=== PATIENT | female | born 1975 | race Caucasian/White ===

== ENCOUNTER → 2016-05-03 | Outpatient (CLI) | payer BC ==
[~2016-05-03] MED LIST: SUMA100T16 PO
[2016-05-03 17:46] LABS: BASO % 0.7 %; BASO ABS # 0.04 K/uL (0-0.2); COMPLETE YES; EOS % 3.1 %; HEMATOCRIT 37.1 % (37-47); IG% 0.3 %; LYMPH % 32.6 %; MEAN CELL VOLUME 83.9 fL (80-100); MEAN CORPUSCULAR HEMOGLOBIN 29.2 pg (25-34); MEAN CORPUSCULAR HGB CONC 34.8 g/dl (32-36); MEAN PLATELET VOLUME 9.6 fL (7.4-10.4); MONO % 8.5 %; NEUT % 54.8 %; PLATELET COUNT 278 K/uL (130-400); RED BLOOD COUNT 4.42 M/uL (4.2-5.4); WHITE BLOOD COUNT 6.14 K/uL (4.8-10.8)
[2016-05-03 18:12] LABS: ALT/SGPT 44 U/L (12-78); AST/SGOT 27 U/L (15-37); BLOOD UREA NITROGEN 8 mg/dl (7-18); BUN/CREATININE RATIO 9.4 (10-20); CALCIUM 9.1 mg/dl (8.5-10.1); CARBON DIOXIDE 27 mmol/L (21-32); CHLORIDE 105 mmol/L (98-107); CREATININE 0.83 mg/dl (0.60-1.20); GLUCOSE 89 mg/dl (70-99); POTASSIUM 3.5 mmol/L (3.5-5.1); SODIUM 142 mmol/L (136-145)
[2016-05-03 18:15] LABS: ALB/GLOB RATIO 1.1 (0.9-2); ALKALINE PHOSPHATASE 60 U/L (45-117)
--- NOTE | 2016-05-24 11:01 | CODING QUERY NO DIAGNOSIS ---
TREATMENT RENDERED WITHOUT A DIAGNOSIS To promote full compliance with coding requirements relating to patient care, physician participation is requested in all cases of cotton stripper uncertainty. Please assist us with providing a diagnosis/symptom for the test(s) below: A diagnosis/symptom was not documented on your Order. A valid diagnosis/symptom is required to bill all insurances. Please remember that we are unable to code a diagnosis of rule out, probable, possible, questionable, or suspected. Tests that require a diagnosis: * CBC W/ AUTO DIFF DIAGNOSIS: * CMP DIAGNOSIS: Provider Signature: Date: Thank you Mellissa Yañez [employer] Information Management Once completed, please kindly fax back to [phone] For questions please call [phone]
== END | disposition home or self-care (01) ==
LOC: C.LAB 16:57
PROVIDERS: ATTEND Internal Medicine Hematology & Oncology
DX: C50.911 Malignant neoplasm of unspecified site of right female breast (principal)

== ENCOUNTER → 2017-04-22 | Outpatient (CLI) | payer OTHER | END | disposition home or self-care (01) | LOC: C.MAMM 10:21 | PROVIDERS: ATTEND Internal Medicine Hematology & Oncology | DX: C50.919 Malignant neoplasm of unspecified site of unspecified female breast (principal) ==

== ENCOUNTER → 2017-05-05 | Outpatient (CLI) | payer OTHER ==
[2017-05-05 15:42] LABS: BASO % 0.7 %; BASO ABS # 0.04 K/uL (0-0.2); EOS % 2.8 %; EOS ABS # 0.16 K/uL (0-0.5); HEMATOCRIT 38.5 % (37-47); HEMOGLOBIN 13.5 g/dL (12.0-16.0); IG# 0.02 K/uL (0.00-0.02); LYMPH % 34.8 %; LYMPH ABS # 2.01 K/uL (1.2-3.4); MEAN CELL VOLUME 83.5 fL (80-100); MEAN CORPUSCULAR HEMOGLOBIN 29.3 pg (25-34); MEAN CORPUSCULAR HGB CONC 35.1 g/dl (32-36); MEAN PLATELET VOLUME 9.6 fL (7.4-10.4); MONO % 8.1 %; MONO ABS # 0.47 K/uL (0.11-0.59); NEUT % 53.3 %; NEUT ABS # 3.08 K/uL (1.4-6.5); PLATELET COUNT 267 K/uL (130-400); RED CELL DISTRIBUTION WIDTH CV 14.1 % (11.5-14.5); RED CELL DISTRIBUTION WIDTH SD 43.1 fL (36.4-46.3); WHITE BLOOD COUNT 5.78 K/uL (4.8-10.8)
[2017-05-05 16:26] LABS: ALBUMIN 4.1 gm/dl (3.4-5.0); ALT/SGPT 43 U/L (12-78); AST/SGOT 29 U/L (15-37); BLOOD UREA NITROGEN 7 mg/dl (7-18); CALCIUM 9.1 mg/dl (8.5-10.1); CARBON DIOXIDE 25 mmol/L (21-32); CREATININE 0.89 mg/dl (0.60-1.20); GLUCOSE 95 mg/dl (70-99); POTASSIUM 3.5 mmol/L (3.5-5.1); SODIUM 138 mmol/L (136-145)
[2017-05-05 16:29] LABS: ALKALINE PHOSPHATASE 62 U/L (45-117); TOTAL PROTEIN 8.2 gm/dl (6.4-8.2)
== END | disposition home or self-care (01) ==
LOC: C.LAB 14:56
PROVIDERS: ATTEND Internal Medicine Hematology & Oncology
DX: C50.911 Malignant neoplasm of unspecified site of right female breast (principal)

== ENCOUNTER 2017-05-17 19:01 | Emergency (ER) | payer OTHER ==
[~2017-05-17] VITALS: Ht 175.3 cm; Wt 93.9 kg
[2017-05-17 19:10] VITALS: TEMP 36.4; Ht 175.3 cm; Wt 93.9 kg
[2017-05-17] MEDS ORDERED: GI COCKTAIL PO STA (19:26)
[2017-05-17] MEDS ORDERED: ONDANSETRON INJ 2 MG/ML 2 ML VIAL IV STA ×2 (19:26→22:01)
[2017-05-17] MEDS ORDERED: FAMOTIDINE 20 MG TAB PO ONE (19:30)
--- NOTE | 2017-05-17 19:31 | EMERGENCY ROOM VISIT NOTE ---
History Report prepared by Quinn: Enrique May Under the Supervision of: Dr. Titus Orozco M.D. First contact with patient: 19:15 Chief Complaint: GI ASSESSMENT Stated Complaint: INTENSE PAIN AFTER EATING, LASTING SEVERAL HOURS Nursing Triage Summary: Pt states pain "around abdomen and it travels into my left shoulder. It started Thurs night. I had some nausea from the pain. I had just eaten and was in the shower and the pain last all night. I took a Gas-X and it helped a little. I ate some soup and saltines tonight and within an hour I got the pain again." History of Present Illness The patient is a 41 year old white female with a past medical history of migraines, hysterectomy, lymphedema, double mastectomy, and breast cancer who presents to the ED with a cc of intermittent lower abdominal pain beginning two days ago. She rates her discomfort as a 6/10 in severity. The patient states that the pain started after she ate dinner two days ago. She reports that the pain resolved the next day until she ate food later that evening. The patient states that at this time the pain was located more on the left side of her abdomen. The patient states that she took Gas-X and Pepto Bismol, which she reports mildly alleviated her pain. She reports that she induced vomiting, which also helped mildly alleviate symptoms. The patient states that she has not had a bowel movement for two days. Positive nausea, back pain, left shoulder pain. Negative fried food, citrus food, hematuria, urinary symptoms, passing gas, vaginal bleeding or discharge, leg swelling, chest pain, SOB, sick contact, recent long travel, and antibiotic use. Source of History: patient Onset: two days ago Position: abdomen Symptom Intensity: 6/10 Timing: intermittent Modifying Factors (Worsening): eating Modifying Factors (Relieving): other (Gas-x, Pepto Bismol, vomiting) Associated Symptoms: + nausea, + back pain, No chest pain, No SOB, No urinary symptoms Review of Systems See HPI for pertinent positives and negatives. A total of ten systems were reviewed and were otherwise negative. Past Medical & Surgical Medical Problems: (1) Breast cancer Surgical Problems: (1) H/O mastectomy (2) H/O: hysterectomy Family History Diabetes mellitus FHx: cancer FHx: heart disease Social History Smoking Status: Never Smoker Marital Status: single Housing Status: lives alone Occupation Status: employed Current/Historical Medications Scheduled Sumatriptan Succinate (Imitrex), 100 MG PO PRN Tamsulosin Hcl (Flomax), 0.4 MG PO DAILY Scheduled PRN Ondansetron Hcl (Zofran), 4 MG PO Q8H PRN for Nausea Oxycodone Immediate Rel Tab (Roxicodone Ir), 5 MG PO Q4H PRN for Severe Pain Allergies Coded Allergies: No Known Allergies (Verified , 05/17/17) Physical Exam Vital Signs Date Time Temp Pulse Resp B/P (MAP) Pulse Ox O2 Delivery O2 Flow Rate FiO2 05/17/17 22:39 106 18 143/92 97 05/17/17 20:57 101 18 152/93 99 Room Air 05/17/17 19:55 100 05/17/17 19:10 36.4 110 18 125/95 98 Room Air Physical Exam GENERAL: Awake, alert, well-appearing, NAD HENT: Normocephalic, atraumatic. EYES: Normal conjunctiva. Sclera non-icteric. NECK: Supple. No nuchal rigidity. FROM. RESPIRATORY: CTAB, no rhonchi, wheezing, crackles CARDIAC: RRR, no MRG ABDOMEN: Soft, mild LUQ TTP, ND, BS+ MSK: No chest wall TTP, no LE edema NEURO: GCS 15, CN 2-12 intact, moves all 4s on command SKIN: No rash or jaundice noted. Medical Decision & Procedures ER Provider Diagnostic Interpretation: Radiology results as stated below per my review and radiologist interpretation: ABDOMEN 2VIEW W/PA CHEST RTN CLINICAL HISTORY: 41 years-old Female presenting with ABDOMINAL PAIN/GI. TECHNIQUE: PA view of the chest and supine and upright views of the abdomen were obtained. COMPARISON: Chest x-ray from 03/14/2016. FINDINGS: Cardiomediastinal silhouette normal. Lungs and pleural spaces clear. Surgical clips in the left axilla. Nonobstructive bowel gas pattern. Moderate stool burden in the right colon. No gross pneumoperitoneum. Allowing for bowel gas and stool, no calcifications to suggest nephrolithiasis. Osseous structures normal. IMPRESSION: 1. No acute cardiopulmonary disease. 2. No radiographic evidence of acute intra-abdominal pathology. Electronically signed by: Bryson Urbina M.D. 05/17/2017 9:03 PM Dictated Date/Time: 05/17/2017 9:01 PM ABD/PELVIS IV CONTRAST ONLY CLINICAL HISTORY: 41 years-old Female presenting with LUQ pain, shoulder pain, prior h/o breast CA, lower abdominal pain. TECHNIQUE: Multidetector CT of the abdomen and pelvis was performed after the administration of intravenous contrast. IV contrast: 120 mL of Optiray 320. A dose lowering technique was used consistent with the principles of ALARA (as low as reasonably achievable). COMPARISON: 08/20/2010.. CT DOSE (mGy.cm): The estimated cumulative dose is 578.00 mGy.cm. 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 Lung bases: Lungs and pleural spaces clear. Normal heart size. No pericardial or pleural effusion. Liver: Normal morphology. No liver lesion. Patent hepatic vasculature. Biliary: No intrahepatic or extrahepatic biliary ductal dilatation. Normal gallbladder. Pancreas: Normal. Spleen: Normal. Adrenal glands: Normal. Kidneys and ureters: Obstructing 1 to 2 mm calculus at the left ureterovesical junction. Mild left pelvocaliectasis and mild distention of the left ureter. Hypoperfusion of the left kidney relative to the right. The left kidney is also swollen with mild perinephric fat stranding. No additional renal or ureteral calculus. Right kidney and ureter normal. Bladder: Normal. Pelvic organs: Uterus surgically absent. No adnexal masses. Bowel: Normal. No bowel obstruction. Peritoneal cavity: No free fluid or intraperitoneal gas. Lymph nodes: No enlarged lymph nodes in the abdomen or pelvis. Vasculature: Aorta and IVC patent and normal in caliber. Abdominal wall: Normal. Musculoskeletal: Normal. IMPRESSION: 1. Obstructing 1-2 mm calculus at the left ureterovesical junction with resultant mild left hydroureteronephrosis. No additional renal or ureteral calculus. Electronically signed by: Bryson Urbina M.D. 05/17/2017 9:23 PM Dictated Date/Time: 05/17/2017 9:19 PM Laboratory Results 05/17/17 19:55 Red Blood Count 4.56, Mean Corpuscular Volume 85.5, Mean Corpuscular Hemoglobin 29.4, Mean Corpuscular Hemoglobin Concent 34.4, Mean Platelet Volume 9.8, Neutrophils (%) (Auto) 79.8, Lymphocytes (%) (Auto) 9.5, Monocytes (%) (Auto) 9.8, Eosinophils (%) (Auto) 0.4, Basophils (%) (Auto) 0.2, Neutrophils # (Auto) 9.95, Lymphocytes # (Auto) 1.18, Monocytes # (Auto) 1.22, Eosinophils # (Auto) 0.05, Basophils # (Auto) 0.03 05/17/17 19:55 Test 05/17/17 19:43 05/17/17 19:55 Urine Color YELLOW Urine Appearance CLEAR (CLEAR) Urine pH 5.5 (4.5-7.5) Urine Specific [place] 1.015 (1.000-1.030) Urine Protein NEG (NEG) Urine Glucose (UA) NEG (NEG) Urine Ketones 1+ (NEG) Urine Occult Blood TRACE (NEG) Urine Nitrite NEG (NEG) Urine Bilirubin NEG (NEG) Urine Urobilinogen NEG (NEG) Urine Leukocyte Esterase SMALL (NEG) Urine WBC (Auto) 1-5 /hpf (0-5) Urine RBC (Auto) 0-4 /hpf (0-4) Urine Hyaline Casts (Auto) 1-5 /lpf (0-5) Urine Epithelial Cells (Auto) 20-30 /lpf (0-5) Urine Bacteria (Auto) NEG (NEG) Urine Test NEG (NEG) White Blood Count 12.47 K/uL (4.8-10.8) Red Blood Count 4.56 M/uL (4.2-5.4) Hemoglobin 13.4 g/dL (12.0-16.0) Hematocrit 39.0 % (37-47) Mean Corpuscular Volume 85.5 fL (80-100) Mean Corpuscular Hemoglobin 29.4 pg (25-34) Mean Corpuscular Hemoglobin Concent 34.4 g/dl (32-36) Platelet Count 247 K/uL (130-400) Mean Platelet Volume 9.8 fL (7.4-10.4) Neutrophils (%) (Auto) 79.8 % Lymphocytes (%) (Auto) 9.5 % Monocytes (%) (Auto) 9.8 % Eosinophils (%) (Auto) 0.4 % Basophils (%) (Auto) 0.2 % Neutrophils # (Auto) 9.95 K/uL (1.4-6.5) Lymphocytes # (Auto) 1.18 K/uL (1.2-3.4) Monocytes # (Auto) 1.22 K/uL (0.11-0.59) Eosinophils # (Auto) 0.05 K/uL (0-0.5) Basophils # (Auto) 0.03 K/uL (0-0.2) RDW Standard Deviation 43.5 fL (36.4-46.3) RDW Coefficient of Variation 14.2 % (11.5-14.5) Immature Granulocyte % (Auto) 0.3 % Immature Granulocyte # (Auto) 0.04 K/uL (0.00-0.02) Anion Gap 7.0 mmol/L (3-11) Est Creatinine Clear Calc Drug Dose 61.7 ml/min Estimated GFR () 50.8 Estimated GFR (Non- 43.8 BUN/Creatinine Ratio 9.3 (10-20) Calcium Level 9.3 mg/dl (8.5-10.1) Total Bilirubin 0.6 mg/dl (0.2-1) Direct Bilirubin mg/dl (0-0.2) Aspartate Amino Transf (AST/SGOT) 28 U/L (15-37) Alanine Aminotransferase (ALT/SGPT) 32 U/L (12-78) Alkaline Phosphatase 64 U/L (45-117) Total Protein 8.3 gm/dl (6.4-8.2) Albumin 4.0 gm/dl (3.4-5.0) Lipase 130 U/L (73-393) Chemistry Specimen Hemolysis Laboratory results reviewed by me Medications Administered Medications (Trade) Dose Ordered Sig/Mike Route Start Time Stop Time Status Last Admin Dose Admin Ondansetron HCl (Zofran Inj) 4 mg NOW STAT IV 05/17/17 19:26 05/17/17 19:27 DC 05/17/17 20:09 4 MG Famotidine (Pepcid Tab) 20 mg NOW ONCE PO 05/17/17 19:30 05/17/17 19:31 DC 05/17/17 20:11 20 MG Lidocaine HCl (Viscous Lidocaine 2% Soln) 20 ml STK-MED ONCE .ROUTE 05/17/17 20:04 05/17/17 20:05 DC 05/17/17 20:11 10 ML Al Hydroxide/Mg Hydroxide (Maalox Susp) 30 ml STK-MED ONCE .ROUTE 05/17/17 20:05 05/17/17 20:06 DC 05/17/17 20:12 30 ML Tamsulosin HCl (Flomax Cap) 0.4 mg NOW ONCE PO 05/17/17 21:45 05/17/17 21:46 DC 05/17/17 21:37 0.4 MG Acetaminophen/ Hydrocodone Bitart ([place] 5/325 Tab) 1 tab ONE STAT PO 05/17/17 21:32 05/17/17 21:33 DC 05/17/17 21:38 1 TAB Ketorolac Tromethamine (Toradol Inj) 30 mg NOW STAT IV 05/17/17 21:40 05/17/17 21:41 DC 05/17/17 22:05 30 MG Morphine Sulfate (MoRPHine SULFATE INJ) 4 mg NOW STAT IV 05/17/17 21:40 05/17/17 21:41 DC 05/17/17 22:07 4 MG Ondansetron HCl (Zofran Inj) 4 mg NOW STAT IV 05/17/17 22:01 05/17/17 22:02 DC 05/17/17 22:03 4 MG ECG Per My Interpretation Indication: abdominal pain Rate (beats per minute): 100 Rhythm: normal sinus Findings: T-wave inversion (Lead III), other (Normal axis, normal intervals, No other STS changes or TWI) ED Course 1918: The patient was evaluated in room C10. A complete history and physical exam was performed. 2135: I reevaluated the patient. Discussed results and discharge instructions: She verbalized understanding and agreement. The patient is ready for discharge. Medical Decision Triage Nursing notes reviewed. Prior records reviewed. The patient is a 41 year old white female with a past medical history of migraines, hysterectomy, lymphedema, double mastectomy, and breast cancer who presents to the ED with a cc of intermittent lower abdominal pain beginning two days ago. The patient's presentation and history were concerning for etiologies such as appendicitis, diverticulitis, PUD, biliary pathology, UTI, pancreatitis, obstruction, mesenteric ischemia, aortic pathology, infections, inflammatory bowel disease, renal colic, as well as others were entertained. Patient was seen and evaluated the bedside. Patient was complaining of some abdominal pain primarily after eating. Patient has had 2 or 3 separate bouts of this discomfort. Patient initially described this as diffuse however when asking for specific worsening location she does describe a left upper quadrant. She does complain of some mild pain in the shoulder. Patient did have blood work completed, EKG, troponin, plain films as well as CT of the abdomen and pelvis. Patient's blood work is fairly unremarkable. Urinalysis negative for infection. Patient urine test negative. Patient's plain films negative. Patient's EKG nonischemic with a negative troponin. Less likely atypical chest pains. CTV of the abdomen pelvis did show a 1-2 mm left obstructing stone. Patient's creatinine is 1.48. Patient is still making good urine. Given the size of the stone even though it is obstructing it is likely to pass, especially given that this is at the [facility]. Patient's pain is improved. Patient was informed of findings. I did state that the patient should return if she has any worsening symptoms and was given a referral to urology. Patient does not appear to be infected thus I do not believe that she needs to stay in the hospital at this time. Patient was able to tolerate p.o. without issue. Patient was deemed suitable for outpatient follow-up and discharge. Medication Reconcilliation Current Medication List: was personally reviewed by me Blood Pressure Screening Patient's blood pressure: Normal blood pressure Impression Primary Impression: Ureterolithiasis Additional Impressions: Abdominal pain Nausea Scribe Attestation The scribe's documentation has been prepared under my direction and personally reviewed by me in its entirety. I confirm that the note above accurately reflects all work, treatment, procedures, and medical decision making performed by me. Departure Information Dispostion Home / Self-Care Prescriptions Ondansetron Hcl (ZOFRAN) 4 Mg Tab 4 MG PO Q8H Y for Nausea, #12 TAB Prov: Titus Orozco M.D. 05/17/17 Oxycodone Immediate Rel Tab (ROXICODONE IR) 5 Mg Tab 5 MG PO Q4H Y for Severe Pain, #12 TAB Prov: Titus Orozco M.D. 05/17/17 Tamsulosin Hcl (FLOMAX) 0.4 Mg Cap 0.4 MG PO DAILY for 30 Days, #30 CAP Prov: Titus Orozco M.D. 05/17/17 Referrals No Doctor, Assigned (PCP) Bhupinder Sharma MD Patient Instructions Kidney Stones - [facility], Kidney Stones [facility], [facility] Additional Instructions Please return to the emergency department if you have worsening or recurrent symptoms not amenable to at-home treatment. Please call for a follow-up appointment with her primary care physician. Please take your medications as prescribed. If you have other concerns and/or complaints please feel free to also call your primary care physician's office or return the ED for further evaluation, management, and treatment. You received narcotic or benzodiazepene medication while in the emergency room today. This is an addictive medication that may cause drowziness as well as constipation. Do not drive, operate heavy machinery, or drink alcohol under the influence of this medication. You may take 600 mg Ibuprofen every 6 hours as needed for pain with food. You may take tylenol 1000 mg every 6 hours as needed for pain. You may take motrin and tylenol separately or at the same time. You may call the urologist as needed for a follow up appointment. Take your medications as prescribed. You have been examined and treated today on an emergency basis only. This is not a substitute for, or an effort to provide, complete comprehensive medical care. It is impossible to recognize and treat all injuries or illnesses in a single emergency department visit. It is therefore important that you follow up closely with [facility], your PCP, and/or your specialist(s). Call as soon as possible for an appointment. Thank you for your time and consideration. I look forward to speaking with you again soon. Please don't hesitate to call us if you have any questions. Problem Qualifiers Additional Impressions: Abdominal pain Abdominal location: generalized Qualified Codes: R10.84 - Generalized abdominal pain
[2017-05-17] MEDS ORDERED: OPTIRAY 320 IV PRN (20:00)
[2017-05-17] MEDS ORDERED: LIDOCAINE HCL 2% VISC SOLN 20 ML UDC ONE (20:04)
[2017-05-17] MEDS ORDERED: ALUMINUM/MAGNESIUM SUSP 30 ML UDC ONE (20:05)
[2017-05-17 20:09] LABS: BASO % 0.2 %; BASO ABS # 0.03 K/uL (0-0.2); EOS % 0.4 %; EOS ABS # 0.05 K/uL (0-0.5); HEMOGLOBIN 13.4 g/dL (12.0-16.0); IG# 0.04 K/uL (0.00-0.02); LYMPH % 9.5 %; LYMPH ABS # 1.18 K/uL (1.2-3.4); MEAN CELL VOLUME 85.5 fL (80-100); MEAN CORPUSCULAR HEMOGLOBIN 29.4 pg (25-34); MEAN CORPUSCULAR HGB CONC 34.4 g/dl (32-36); MEAN PLATELET VOLUME 9.8 fL (7.4-10.4); MONO % 9.8 %; MONO ABS # 1.22 K/uL (0.11-0.59); NEUT % 79.8 %; NEUT ABS # 9.95 K/uL (1.4-6.5); PLATELET COUNT 247 K/uL (130-400); RED CELL DISTRIBUTION WIDTH CV 14.2 % (11.5-14.5); RED CELL DISTRIBUTION WIDTH SD 43.5 fL (36.4-46.3); WHITE BLOOD COUNT 12.47 K/uL (4.8-10.8)
[2017-05-17 20:35] LABS: CALCIUM 9.3 mg/dl (8.5-10.1); CREATININE 1.48 mg/dl (0.60-1.20); POTASSIUM 3.9 mmol/L (3.5-5.1); TOTAL PROTEIN 8.3 gm/dl (6.4-8.2)
--- NOTE | 2017-05-17 21:05 | DIAGNOSTIC IMAGING REPORT ---
ABDOMEN 2VIEW W/PA CHEST RTN CLINICAL HISTORY: 41 years-old Female presenting with ABDOMINAL PAIN/GI. TECHNIQUE: PA view of the chest and supine and upright views of the abdomen were obtained. COMPARISON: Chest x-ray from 03/14/2016. FINDINGS: Cardiomediastinal silhouette normal. Lungs and pleural spaces clear. Surgical clips in the left axilla. Nonobstructive bowel gas pattern. Moderate stool burden in the right colon. No gross pneumoperitoneum. Allowing for bowel gas and stool, no calcifications to suggest nephrolithiasis. Osseous structures normal. IMPRESSION: 1. No acute cardiopulmonary disease. 2. No radiographic evidence of acute intra-abdominal pathology. Electronically signed by: Bryson Urbina M.D. 05/17/2017 9:03 PM Dictated Date/Time: 05/17/2017 9:01 PM
--- NOTE | 2017-05-17 21:25 | DIAGNOSTIC IMAGING REPORT ---
ABD/PELVIS IV CONTRAST ONLY CLINICAL HISTORY: 41 years-old Female presenting with LUQ pain, shoulder pain, prior h/o breast CA, lower abdominal pain. TECHNIQUE: Multidetector CT of the abdomen and pelvis was performed after the administration of intravenous contrast. IV contrast: 120 mL of Optiray 320. A dose lowering technique was used consistent with the principles of ALARA (as low as reasonably achievable). COMPARISON: 08/20/2010.. CT DOSE (mGy.cm): The estimated cumulative dose is 578.00 mGy.cm. FINDINGS: Safety Person topogram: Unremarkable. Lung bases: Lungs and pleural spaces clear. Normal heart size. No pericardial or pleural effusion. Liver: Normal morphology. No liver lesion. Patent hepatic vasculature. Biliary: No intrahepatic or extrahepatic biliary ductal dilatation. Normal gallbladder. Pancreas: Normal. Spleen: Normal. Adrenal glands: Normal. Kidneys and ureters: Obstructing 1 to 2 mm calculus at the left ureterovesical junction. Mild left pelvocaliectasis and mild distention of the left ureter. Hypoperfusion of the left kidney relative to the right. The left kidney is also swollen with mild perinephric fat stranding. No additional renal or ureteral calculus. Right kidney and ureter normal. Bladder: Normal. Pelvic organs: Uterus surgically absent. No adnexal masses. Bowel: Normal. No bowel obstruction. Peritoneal cavity: No free fluid or intraperitoneal gas. Lymph nodes: No enlarged lymph nodes in the abdomen or pelvis. Vasculature: Aorta and IVC patent and normal in caliber. Abdominal wall: Normal. Musculoskeletal: Normal. IMPRESSION: 1. Obstructing 1-2 mm calculus at the left ureterovesical junction with resultant mild left hydroureteronephrosis. No additional renal or ureteral calculus. Electronically signed by: Bryson Urbina M.D. 05/17/2017 9:23 PM Dictated Date/Time: 05/17/2017 9:19 PM
[2017-05-17] MEDS ORDERED: HYDROCODONE/ACETAMIN 5/325MG TAB PO STA (21:32)
[2017-05-17] MEDS ORDERED: MoRPHine SULFATE 4 MG/ML 1 ML CARP\\VIAL IV STA (21:40)
[2017-05-17] MEDS ORDERED: KETOROLAC TROMETHAMINE 30 MG/ML VIAL IV STA (21:40)
[2017-05-17] MEDS ORDERED: TAMSULOSIN HCL 0.4 MG CAP PO ONE (21:45)
[2017-05-17] MEDS ORDERED: OXYC1TAB3 PO (21:59)
[2017-05-17] MEDS ORDERED: TAMS0.4C38 PO (21:59)
[2017-05-17] MEDS ORDERED: ONDA4TAB46 PO (21:59)
[2017-05-17] MEDS ORDERED: ONDANSETRON INJ 2 MG/ML 2 ML VIAL ONE (22:00)
[2017-05-17 22:39] VITALS: BP 143/92; PULSE 106; O2SAT 97
== END 2017-05-17 22:39 | disposition home or self-care (01) ==
LOC: C.EDB 19:02 → C.EDC 22:39
DX: N13.2 Hydronephrosis with renal and ureteral calculous obstruction (principal); Z90.710 Acquired absence of both cervix and uterus; Z90.13 Acquired absence of bilateral breasts and nipples; Z85.3 Personal history of malignant neoplasm of breast; Z83.3 Family history of diabetes mellitus; Z80.9 Family history of malignant neoplasm, unspecified; Z79.899 Other long term (current) drug therapy